=== PATIENT | female | born 1975 ===

== ENCOUNTER 2021-07-27 07:09 | Emergency (ER) | payer SELFPAY ==
--- NOTE | 2021-07-27 09:03 | XRay Report ---
CHEST 2 VIEWS INDICATION / CLINICAL INFORMATION: chest pain. COMPARISON: None available. FINDINGS: SUPPORT DEVICES: None. HEART / MEDIASTINUM: No significant abnormality. LUNGS / PLEURA: No significant pulmonary or pleural abnormality. No pneumothorax. ADDITIONAL FINDINGS: No significant additional findings. IMPRESSION: 1. No acute findings. Signer Name: Perez Munoz DO Signed: 07/27/2021 8:59 AM Workstation Name: [id number]
[2021-07-27] MEDS ORDERED: predniSONE 20 MG TAB PO ONE (10:09)
[2021-07-27] MEDS ORDERED: CYCLOBENZAPRINE 10 MG TAB PO ONE (10:09)
--- NOTE | 2021-07-27 10:10 | Emergency Department Report ---
ED Neck Pain/Injury HPI - General Chief Complaint: Chest Pain Stated Complaint: ARM PAIN,CHEST PAIN Time Seen by Provider: 07/27/21 10:04 Mode of arrival: Ambulatory Limitations: No Limitations - History of Present Illness Initial Comments: Patient is a 46-year-old female that woke up with acute onset left-sided neck pain today. Patient denies fever or chills. She denies chest pain or shortness of breath. She is otherwise healthy. She states that she has not had this occur before. However, family members come into the room later in the stay and after that she has been struggling with this for weeks. Patient is ambulatory, nontoxic [id number] with normal vital signs. She has no meningeal signs. No fever or chills Patient took nothing for the pain prior to arrival. She does states the pain is worse with movement. MD Complaint: neck pain -: Sudden Radiation: left lateral Quality: aching Consistency: constant Improves With: immobilization Context: other Associated Symptoms: none (None) Treatments Prior to Arrival: none - Related Data Allergies Allergy/AdvReac Type Severity Reaction Status Date / Time No Known Allergies Allergy Verified 07/27/21 08:34 ED Review of Systems ROS: Stated complaint: ARM PAIN,CHEST PAIN Other details as noted in HPI Comment: All other systems reviewed and negative ED Past Medical Hx - Past Medical History Previous Medical History?: No - Surgical History Past Surgical History?: No - Family History Family history: no significant - Social History Smoking Status: Never Smoker Substance Use Type: None ED Physical Exam - General Limitations: No Limitations General appearance: alert, in no apparent distress - Head Head exam: Present: atraumatic, normocephalic - Eye Eye exam: Present: normal appearance - ENT ENT exam: Present: mucous membranes moist - Neck Neck exam: Present: normal inspection - Respiratory Respiratory exam: Present: normal lung sounds bilaterally. Absent: respiratory distress - Cardiovascular Cardiovascular Exam: Present: regular rate, normal rhythm. Absent: systolic murmur, diastolic murmur, rubs, gallop - GI/Abdominal GI/Abdominal exam: Present: soft, normal bowel sounds - Extremities Exam Extremities exam: Present: normal inspection - Back Exam Back exam: Present: normal inspection - Neurological Exam Neurological exam: Present: alert, oriented X3 - Psychiatric Psychiatric exam: Present: normal affect, normal mood - Skin Skin exam: Present: warm, dry, intact, normal color. Absent: rash - Other Other exam information: Trapezius muscle spasm of left arm noted ED Course Vital Signs 07/27/21 07/27/21 08:35 11:59 Temperature 97.9 F 97.9 F Pulse Rate 79 77 Respiratory 16 20 Rate Blood Pressure 147/86 124/79 [Left] O2 Sat by Pulse 99 100 Oximetry ED Medical Decision Making - EKG Data -: EKG Interpreted by Me EKG shows normal: sinus rhythm Rate: normal - EKG Data When compared to previous EKG there are: no significant change Interpretation: no acute changes - Radiology Data Radiology results: report reviewed, image reviewed - Medical Decision Making Labs 07/27/21 08:45 Troponin T < 0.010 Vital Signs 07/27/21 08:35 Temperature 97.9 F Pulse Rate 79 Respiratory 16 Rate Blood Pressure 147/86 [Left] O2 Sat by Pulse 99 Oximetry Labs noted. Vital signs normal. Medicated for pain in the ER. Patient got relief with medications. Patient remained neurologically intact during entire ER visit. She has no focal deficit. She has no chest pain or shortness of breath. - Differential Diagnosis Muscle spasm Critical care attestation.: If time is entered above; I have spent that time in minutes in the direct care of this critically ill patient, excluding procedure time. ED Disposition Clinical Impression: Torticollis Disposition: 01 HOME / SELF CARE / HOMELESS Is pt being admited?: No Does the pt Need Aspirin: No Condition: Stable Instructions: Acute Torticollis, Adult Additional Instructions: [id number] Motrin or Tylenol for pain. Exercises for neck will help with the spasm Warm baths and Epson salts in the bath will help with pain Follow-up with PCP if pain persist I have given you referral below Diet and activity as tolerated EKG and troponin normal today Referrals: REBEKA HAYNES MD [Staff Physician] - 3-5 Days Forms: Work/School Release Form(ED) Time of Disposition: 11:32
[2021-07-27 12:01] VITALS: BP 124/79
== END 2021-07-27 12:02 | disposition home or self-care (01) ==
LOC: ED 07:09
DX: M43.6 Torticollis (principal)
CPT/HCPCS: 36415; 71046; 84484; 99283